=== PATIENT | female | born 1950 | race Hispanic/Latino ===

== ENCOUNTER → 2017-11-16 | Outpatient (CLI) | payer MEDICARE ==
[~2017-11-16] MED LIST: ALBU18HF7 IH; ALEN35TA31 PO; ASPI-1181 PO; ATOR20TA65 PO; BIMA12.5OS OU; DIPH30C TP; ESOM20CA39 PO; FURO-152 PO; LISI2.5T2 PO; METO-408 PO; PREG50 PO; SPIR25TA4 PO; WARF-57 PO
== END ==
LOC: RAH 11:41
PROVIDERS: ATTEND Internal Medicine
DX: J44.9 Chronic obstructive pulmonary disease, unspecified (principal); M47.895 Other spondylosis, thoracolumbar region
CPT/HCPCS: 71046